=== PATIENT | male | born 1975 | race Hispanic/Latino ===

== ENCOUNTER 2017-11-30 20:44 | Inpatient (IN) | payer BC, OTHER ==
[~2017-11-30] VITALS: Ht 182.9 cm; Wt 70.6 kg
[2017-11-30] MEDS ORDERED: ZOSYN 3.375GM+NS 50ML 50 ML IV ONE (20:59)
[2017-11-30 21:13] LABS: BILIRUBIN,URINE Negative (NEGATIVE); COLOR,URINE Yellow (YELLOW); GLUCOSE, URINE (UA) Negative (NEGATIVE); KETONES,URINE Negative (NEGATIVE); LEUKOCYTE ESTERASE ,URINE Small (NEGATIVE); NITRATE,URINE Negative (NEGATIVE); OCCULT BLOOD,URINE Small (NEGATIVE); PROTEIN,URINE POS 2+ (NEGATIVE)
[2017-11-30 21:13] LABS: BASOPHILS % (AUTO) 0.6 % (0.0-5.0); EOSINOPHILS % (AUTO) 0.1 % (0.0-8.0); MEAN CORPUSCULAR HEMOGLOBIN 32.6 pg (27.0-33.0); MEAN CORPUSCULAR HGB CONC 33.1 g/dL (32.0-36.0); MEAN CORPUSCULAR VOLUME 98.4 fL (79-99); MONOCYTES % (AUTO) 6.2 % (3.0-13.0); NEUTROPHILS % (AUTO) 86.1 % (40.0-77.0); PLATELET COUNT (AUTO) 176 K/uL (130-400); RED BLOOD CELL COUNT(AUTO) 3.66 MIL/uL (4.50-6.20); RED CELL DISTRIBUTION WIDTH 14.8 % (11.0-15.5); WHITE BLOOD COUNT (AUTO) 14.2 K/uL (4.8-10.8)
[2017-11-30] MEDS ORDERED: ACETAMINOPHEN EXTRA STRENGTH 500 MG TABLET ONE (21:21)
[2017-11-30] MEDS ORDERED: IBUPROFEN 800 MG TAB ONE (21:21)
[2017-11-30 21:22] LABS: APPEARANCE,URINE SLIGHTLY CLOUDY (CLEAR)
[2017-11-30 21:26] LABS: CARBON DIOXIDE 22 mmol/L (21-32); CHLORIDE 103 mmol/L (101-111); GLOMERULAR FILTR. RATE CALC 39 mL/min (>60); GLUCOSE,RANDOM 121 mg/dL (70-105); SODIUM SERUM 136 mmol/L (136-145); UREA NITROGEN, BLOOD 15 mg/dL (7-18)
[2017-11-30 21:28] LABS: INR 0.93 (0.85-1.15); PARTIAL THROMBOPLASTIN TIME 34.7 SEC (26.3-35.5); PROTHROMBIN TIME 9.8 SEC (9.6-11.6)
[2017-11-30 21:38] LABS: ALANINE AMINOTRANSFERASE 14 U/L (12-78); ALBUMIN 3.1 g/dL (3.5-5.0); ASPARTATE AMINOTRANSFERASE 11 U/L (10-37); BILIRUBIN,TOTAL 0.2 mg/dL (0.2-1.0); CREATINE KINASE, TOTAL 20 U/L (21-232); MYOGLOBIN 27 ng/mL (10-92); TOTAL PROTEIN, SERUM 7.6 g/dL (6.0-8.3); TROPONIN I < 0.04 ng/mL (0.00-0.06)
[2017-11-30 21:50] LABS: BACTERIA,URINE Few /HPF (None Seen)
[2017-11-30 21:51] LABS: SQUAMOUS EPITHELIAL CELL,UR Rare /HPF (0-2)
[2017-11-30] MEDS: LEVOFLOXACIN 500 MG/D5W 100 ML 100 ML IV SCH (23:45)
[2017-11-30] MEDS: SODIUM CHLORIDE 0.9% 1000ML 1,000 ML IV SCH (23:45)
[2017-11-30] MEDS ORDERED: ONDANSETRON HCL MDV 20ML 2 MG/ML VIAL IV PRN (23:45)
[2017-12-01] VITALS (7 sets, daily range): BP systolic 92–126; BP diastolic 53–79
[2017-12-01] MEDS ORDERED: SODIUM CHLORIDE 0.9% 1000ML 1,000 ML IV ONE (00:15)
[2017-12-01] MEDS ORDERED: LEVOFLOXACIN 500 MG/D5W 100 ML 100 ML ONE (00:16)
[2017-12-01 06:44] LABS: BASOPHILS % (AUTO) 0.2 % (0.0-5.0); EOSINOPHILS % (AUTO) 0.3 % (0.0-8.0); HEMATOCRIT 31.9 % (42-54); LYMPHOCYTES % (AUTO) 12.6 % (21.0-51.0); MEAN CORPUSCULAR HEMOGLOBIN 31.8 pg (27.0-33.0); MEAN CORPUSCULAR HGB CONC 32.3 g/dL (32.0-36.0); MEAN CORPUSCULAR VOLUME 98.4 fL (79-99); NEUTROPHILS % (AUTO) 77.9 % (40.0-77.0); PLATELET COUNT (AUTO) 114 K/uL (130-400); RED BLOOD CELL COUNT(AUTO) 3.24 MIL/uL (4.50-6.20); WHITE BLOOD COUNT (AUTO) 10.4 K/uL (4.8-10.8)
[2017-12-01 06:53] LABS: CREATININE 1.9 mg/dL (0.5-1.5); POTASSIUM 3.9 mmol/L (3.5-5.1)
[2017-12-01] MEDS: PANTOPRAZOLE SODIUM 40 MG TABLET.DR PO SCH (08:31)
[2017-12-01] MEDS: ENOXAPARIN SODIUM 30 MG/0.3 ML SQ SCH (08:32)
[2017-12-01] MEDS: ACETAMINOPHEN 325 MG TAB PO PRN ×2 (08:37→16:56)
[2017-12-01] MEDS: SODIUM CHLORIDE 0.9% 1000ML 1,000 ML IV SCH ×2 (08:39→16:41)
[2017-12-02] MEDS: LEVOFLOXACIN 500 MG/D5W 100 ML 100 ML IV SCH (00:04)
[2017-12-02] MEDS: SODIUM CHLORIDE 0.9% 1000ML 1,000 ML IV SCH ×3 (03:03→17:24)
[2017-12-02 03:52] VITALS: BP 127/75
[2017-12-02 05:13] LABS: BASOPHILS % (AUTO) 0.3 % (0.0-5.0); EOSINOPHILS % (AUTO) 0.3 % (0.0-8.0); HEMATOCRIT 30.2 % (42-54); LYMPHOCYTES % (AUTO) 14.7 % (21.0-51.0); MEAN CORPUSCULAR HEMOGLOBIN 33.2 pg (27.0-33.0); MEAN CORPUSCULAR VOLUME 97.7 fL (79-99); MONOCYTES % (AUTO) 6.4 % (3.0-13.0); NEUTROPHILS % (AUTO) 78.3 % (40.0-77.0); PLATELET COUNT (AUTO) 153 K/uL (130-400); RED CELL DISTRIBUTION WIDTH 14.8 % (11.0-15.5); WHITE BLOOD COUNT (AUTO) 8.2 K/uL (4.8-10.8)
[2017-12-02 05:22] LABS: CREATININE 1.7 mg/dL (0.5-1.5); POTASSIUM 3.8 mmol/L (3.5-5.1)
[2017-12-02 08:00] VITALS: BP 122/69
[2017-12-02] MEDS: PANTOPRAZOLE SODIUM 40 MG TABLET.DR PO SCH (08:23)
[2017-12-02] MEDS: ENOXAPARIN SODIUM 30 MG/0.3 ML SQ SCH (08:24)
[2017-12-02] MEDS: MEROPENEM 1 GM VIAL IVP SCH ×2 (10:23→17:34)
[2017-12-02 12:00] VITALS: BP 123/68
[2017-12-02] MEDS: ACETAMINOPHEN 325 MG TAB PO PRN (15:59)
[2017-12-02 16:00] VITALS: BP 106/76
[2017-12-02 19:00] VITALS: BP 112/70
[2017-12-02 23:00] VITALS: BP 119/74
[2017-12-03] MEDS: MEROPENEM 1 GM VIAL IVP SCH ×2 (02:18→08:50)
[2017-12-03 03:00] VITALS: BP 112/70
[2017-12-03 05:41] LABS: BASOPHILS % (AUTO) 0.4 % (0.0-5.0); EOSINOPHILS % (AUTO) 0.9 % (0.0-8.0); HEMATOCRIT 31.7 % (42-54); LYMPHOCYTES % (AUTO) 18.9 % (21.0-51.0); MEAN CORPUSCULAR HEMOGLOBIN 32.1 pg (27.0-33.0); MEAN CORPUSCULAR HGB CONC 33.1 g/dL (32.0-36.0); NEUTROPHILS % (AUTO) 73.8 % (40.0-77.0); PLATELET COUNT (AUTO) 171 K/uL (130-400); RED BLOOD CELL COUNT(AUTO) 3.27 MIL/uL (4.50-6.20); RED CELL DISTRIBUTION WIDTH 14.8 % (11.0-15.5); WHITE BLOOD COUNT (AUTO) 6.7 K/uL (4.8-10.8)
[2017-12-03 05:43] LABS: CREATININE 1.6 mg/dL (0.5-1.5); POTASSIUM 3.7 mmol/L (3.5-5.1)
[2017-12-03 07:00] VITALS: BP 111/68
[2017-12-03] MEDS: SODIUM CHLORIDE 0.9% 1000ML 1,000 ML IV SCH (07:45)
[2017-12-03] MEDS ORDERED: NITR100C PO ×2 (08:36→11:19)
[2017-12-03] MEDS: ENOXAPARIN SODIUM 30 MG/0.3 ML SQ SCH (08:51)
[2017-12-03] MEDS: PANTOPRAZOLE SODIUM 40 MG TABLET.DR PO SCH (08:52)
[2017-12-03] MEDS: ACETAMINOPHEN 325 MG TAB PO PRN (10:29)
[2017-12-03 11:39] VITALS: BP 110/82
== END 2017-12-03 13:10 | disposition home or self-care (01) | DRG 872 ==
LOC: EDH 20:44 → EDHIP 23:42 → 3AH 12-01 00:28
PROVIDERS: ADMIT Internal Medicine; ATTEND Internal Medicine
DX: A41.9 Sepsis, unspecified organism (principal); N39.0 Urinary tract infection, site not specified; D64.9 Anemia, unspecified; F17.210 Nicotine dependence, cigarettes, uncomplicated; N18.9 Chronic kidney disease, unspecified; Z16.12 Extended spectrum beta lactamase (ESBL) resistance; B96.20 Unspecified Escherichia coli [E. coli] as the cause of diseases classified elsewhere; Z85.6 Personal history of leukemia; Z92.21 Personal history of antineoplastic chemotherapy; Z83.3 Family history of diabetes mellitus
CPT/HCPCS: 36415; 71045; 80048; 80053; 80339; 81001; 82550; 83605; 83874; 84484; 85025; 85610; 85730; 86140; 87040; 87077; 87088; 87186; 87804; 93005; 99291; A4218; J1650; J1956; J2185; J2543; J7030